=== PATIENT | male | born 1970 | race Caucasian/White ===

== ENCOUNTER 2018-07-20 16:14 | Emergency (ER) | payer MEDICAID ==
[~2018-07-20] VITALS: Ht 170.2 cm; Wt 86.0 kg
[~2018-07-20 16:14] MED LIST: BUSP5TAB3; MOTRIN; NORCO
[2018-07-20 16:17] VITALS: BP 146/95
== END 2018-07-20 19:36 | disposition left against medical advice (07) ==
LOC: ER 16:14
DX: M54.9 Dorsalgia, unspecified (principal); Z98.890 Other specified postprocedural states
CPT/HCPCS: 99281

== ENCOUNTER 2018-07-21 02:00 | Emergency (ER) | payer MEDICAID ==
[~2018-07-21] VITALS: Ht 170.2 cm; Wt 82.0 kg
[2018-07-21] MEDS ORDERED: IBUPROFEN 800MG TABLET PO ONE (05:30)
[2018-07-21] MEDS ORDERED: OXYCODONE HCL/ACETAMINOPHEN 5/325MG TABLET PO ONE (05:30)
[2018-07-21 06:42] VITALS: BP 119/78
== END 2018-07-21 06:46 | disposition home or self-care (01) ==
LOC: ER 02:00
DX: M54.5 Low back pain (principal); G89.29 Other chronic pain; M54.30 Sciatica, unspecified side; F17.200 Nicotine dependence, unspecified, uncomplicated; Z98.1 Arthrodesis status; Z88.5 Allergy status to narcotic agent
CPT/HCPCS: 99283; Z7610

== ENCOUNTER 2018-07-24 10:28 | Emergency (ER) | payer MEDICAID ==
[~2018-07-24] VITALS: Ht 170.2 cm; Wt 82.0 kg
[2018-07-24] MEDS ORDERED: ONDANSETRON HCL 4MG/2ML INJ IV STA (11:13)
[2018-07-24] MEDS ORDERED: SODIUM CHLORIDE 0.9% 1,000 ML IV ONE (11:13)
[2018-07-24] MEDS ORDERED: FAMOTIDINE 20MG/2ML VIAL IV STA (11:13)
[2018-07-24] MEDS ORDERED: MORPHINE SULFATE 4 MG/ML CPJ (NOT FOR IM USE) IV STA (11:13)
[2018-07-24 11:56] LABS: BASOPHILS % 0.6 % (0.0-2.0); CLARITY URINE CLEAR (CLEAR); COLOR URINE YELLOW (YELLOW); EOSINOPHILS % 0.2 % (0.0-5.0); HEMATOCRIT. 44.9 % (42.0-52.0); HEMOGLOBIN. 15.6 g/dL (14.0-18.0); KETONES URINE TRACE (NEGATIVE); LEUKOCYTE ESTERASE URINE NEGATIVE (NEGATIVE); LYMPHOCYTES % 7.6 % (20.0-50.0); MEAN CORPUSCULAR HEMOGLOBIN 30.3 pg (28.0-32.0); MEAN CORPUSCULAR VOLUME 87.3 fL (80.0-94.0); MEAN PLATELET VOLUME 8.5 fl (7.4-10.4); MONOCYTES % 6.6 % (2.0-8.0); NITRITE URINE NEGATIVE (NEGATIVE); OCCULT BLOOD URINE NEGATIVE (NEGATIVE); PH URINE 5.5 (4.5-8.0); PLATELET 211 x1000/uL (130-400); PROTEIN URINE TRACE (NEGATIVE); RED BLOOD CELL COUNT 5.15 mill/uL (4.7-6.1); RED CELL DISTRIBUTION WIDTH 13.5 % (11.6-14.6)
[2018-07-24 12:00] LABS: CHLORIDE 100 mEq/L (98-107)
[2018-07-24 12:02] LABS: ETHANOL BLOOD < 10 mg/dL
[2018-07-24 12:14] LABS: PROTHROMBIN TIME 9.8 sec (9.1-11.1)
[2018-07-24 12:34] LABS: *AMPHETAMINES SCREEN URINE NEGATIVE (NEGATIVE); *BARBITURATES SCREEN URINE NEGATIVE (NEGATIVE)
[2018-07-24 12:35] LABS: *BENZODIAZEPINES SCREEN URINE NEGATIVE (NEGATIVE); *COCAINE SCREEN URINE NEGATIVE (NEGATIVE); CANNABINOID URINE SCREEN NEGATIVE (NEGATIVE); METHADONE URINE SCREEN NEGATIVE (NEGATIVE); OPIATES URINE SCREEN NEGATIVE (NEGATIVE); PHENCYCLIDINE URINE SCREEN NEGATIVE (NEGATIVE)
[2018-07-24 14:21] VITALS: BP 148/65
== END 2018-07-24 14:27 | disposition home or self-care (01) ==
LOC: ER 10:28
DX: R10.13 Epigastric pain (principal); M54.5 Low back pain; E11.9 Type 2 diabetes mellitus without complications; I10 Essential (primary) hypertension; F17.200 Nicotine dependence, unspecified, uncomplicated; Z98.890 Other specified postprocedural states
CPT/HCPCS: 36415; 74022; 80053; 80305; 81003; 83690; 85025; 85610; 96374; 96375; 99285; G0482; J2405; J3490; J7030; J2270